=== PATIENT | male | born 1975 | race American Indian/Alaskan Native ===

== ENCOUNTER 2018-11-09 08:35 | Emergency (ER) | payer OTHER ==
[2018-11-09 08:46] VITALS: BP 137/76
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
== END 2018-11-09 09:26 | disposition left against medical advice (07) ==
LOC: ED 08:35
DX: Z04.1 Encounter for examination and observation following transport accident (principal); Z53.21 Procedure and treatment not carried out due to patient leaving prior to being seen by health care provider

== ENCOUNTER 2019-04-16 21:08 | Emergency (ER) | payer OTHER ==
--- NOTE | 2019-04-16 22:39 | Emergency Department Report ---
Chief Complaint: Dental/Oral Stated Complaint: SEVERE TOOTHACHE - HPI History of Present Illness: 43 yo M with right upper molar pain x 1 day. Pt reports he has had pain in the same tooth in the past. Denies fever or facial swelling. - ROS Review of Systems: ROS: Comment: All other systems reviewed and negative Constitutional: denies fever ENT: reports dental pain - Exam Physical Exam: Physical Exam: General Limitations: No Limitations General appearance: alert, in no apparent distress - Head Head exam: Present: atraumatic, normocephalic - Eye Eye exam: Present: normal appearance - ENT ENT exam: Present: tooth #2 decayed to the gumline, only small amount of tooth visible, tender to percussion; no trismus, no facial swelling, no facial induration or signs of Elijah's angina - Neck Neck exam: Present: normal inspection, no swelling or induration - Respiratory Respiratory exam: Present: normal lung sounds bilaterally. Absent: respiratory distress - Cardiovascular Cardiovascular Exam: Present: normal rhythm, tachycardia - GI/Abdominal GI/Abdominal exam: Absent: distended - Extremities Exam Extremities exam: normal inspection - Neurological Exam Neurological exam: Present: alert, oriented X3. - Psychiatric Psychiatric exam: Present: normal affect, normal mood - Skin Skin exam: warm, dry, intact MSE screening note: Focused history and physical exam performed. Due to findings the following was ordered: n/a 43 yo M w/ dental caries, toothache. Pt is afebrile. No evidence of dental abscess, no facial swelling, no trismus. Pt does not have an emergent medical condition at this time. He has been advised to follow up with a dentist. Information given for [facility] as well as a flyer with a list of other dental clinics in the area. Return precautions also given. ED Disposition for MSE Clinical Impression: Tooth pain, Dental caries Disposition: MED SCREENING EXAM-LEFT Is pt being admited?: No Condition: Stable Instructions: Dental Caries (ED), Toothache (ED) Referrals: [facility] [Outside] - 3-5 Days [facility] [Provider Group] - 3-5 Days Time of Disposition: 22:38
[2019-04-16 22:42] VITALS: BP 129/78
== END 2019-04-17 01:35 | disposition left against medical advice (07) ==
LOC: ED 21:08
DX: K02.9 Dental caries, unspecified (principal)
CPT/HCPCS: 99281